=== PATIENT | male | born 1980 ===

== ENCOUNTER → 2017-03-07 | Outpatient (CLI) | payer BC ==
[~2017-03-07] MED LIST: Polytrim Eye Dr10 ML BOTHEYES
== END | disposition home or self-care (01) ==
LOC: PLD 07:19
DX: D22.61 Melanocytic nevi of right upper limb, including shoulder (principal); D22.62 Melanocytic nevi of left upper limb, including shoulder
CPT/HCPCS: 88305

== ENCOUNTER → 2017-08-15 | Outpatient (CLI) | payer BC ==
[2017-08-15 13:40] LABS: BASOPHILS ABSOLUTE AUTO 0.03 K/mm3 (0.00-0.23); BASOPHILS PERCENT AUTO 0 % (0-2); EOSINOPHILS ABSOLUTE AUTO 0.11 K/mm3 (0.00-0.68); EOSINOPHILS PERCENT AUTO 2 % (0-6); Hematocrit 49.2 % (37.0-53.0); Hemoglobin 17.1 g/dL (13.5-17.5); IMMATURE GRAN ABSOLUTE AUTO 0.02 K/mm3 (0.00-0.10); IMMATURE GRAN PERCENT AUTO 0 % (0-1); LYMPHOCYTES ABSOLUTE AUTO 1.84 K/mm3 (0.84-5.20); LYMPHOCYTES PERCENT AUTO 27 % (21-46); MONOCYTES ABSOLUTE AUTO 0.57 K/mm3 (0.16-1.47); MONOCYTES PERCENT AUTO 8 % (4-13); Mean Corpuscular HGB 31.4 pg (26.0-34.0); Mean Corpuscular HGB Conc 34.8 g/dL (31.5-36.5); Mean Corpuscular Volume 90 fL (80-100); NEUTROPHILS ABSOLUTE AUTO 4.35 K/mm3 (1.96-9.15); NEUTROPHILS PERCENT AUTO 63 % (41-73); Platelet Count 284 K/mm3 (150-400); RDW Standard Deviation 42.1 fL (35.1-46.3); Red Blood Cell Count 5.45 M/mm3 (4.30-5.90); White Blood Cell Count 6.92 K/mm3 (4.00-11.30)
[2017-08-15 13:54] LABS: Alanine Aminotransfer (ALT/SGP 24 U/L (12-78); Albumin, Blood 4.1 g/dL (3.4-5.0); Albumin/Globulin Ratio 1.2 (0.8-1.8); Alk Phos 77 U/L (50-136); Anion Gap 9 mmol/L (6-16); Aspartate Aminotrans (AST/SGOT 16 U/L (12-37); Bilirubin, Total 0.6 mg/dL (0.1-1.0); Blood Urea Nitrogen 9 mg/dL (8-24); CHOL/HDL RATIO 5.9; CO2, Blood 26 mmol/L (21-32); Calcium, Blood 9.2 mg/dL (8.5-10.1); Chloride, Blood 109 mmol/L (98-108); Cholesterol 231 mg/dL (50-200); Globulin, Blood 3.3 g/dL (2.2-4.0); Glomerular Filtration Rate >60 (60-); Glucose, Blood 80 mg/dL (70-99); HDL Cholesterol 39 mg/dL (>39); LDL/HDL RATIO 4.2; Low Density Lipoprotein Chol 163 mg/dL (0-110); Potassium, Blood 4.6 mmol/L (3.5-5.5); Sodium, Blood 144 mmol/L (136-145); Total Protein, Blood 7.4 g/dL (6.4-8.2); Triglycerides 143 mg/dL (30-140); Very Low Density Lipoprot Chol 28 mg/dL (6-28)
== END | disposition home or self-care (01) ==
LOC: LAB 10:12 → LAB SHORT 10:12
PROVIDERS: Hospitalist
DX: Z00.00 Encounter for general adult medical examination without abnormal findings (principal); Z12.5 Encounter for screening for malignant neoplasm of prostate; R10.32 Left lower quadrant pain
CPT/HCPCS: 80053; 80061; 85025; G0103

== ENCOUNTER → 2019-05-07 | Outpatient (CLI) | payer BC ==
[2019-05-07 14:31] LABS: Prostate Specific Antigen 0.737 ng/mL (0.000-4.000)
== END | disposition home or self-care (01) ==
LOC: LAB SHORT 13:19 → LAB 13:19
PROVIDERS: Hospitalist
DX: Z12.5 Encounter for screening for malignant neoplasm of prostate (principal)
CPT/HCPCS: G0103

== ENCOUNTER → 2021-07-30 | Outpatient (CLI) | payer BC, OTHER ==
[2021-07-30 08:30] LABS: Source, Urine Clean Catch
[2021-07-30 09:00] LABS: Bacteria Few /hpf; Squamous Epithelial Cells Few /hpf (Few)
[2021-08-03 00:09] LABS: CHLAMYDIA BY NAA Negative (Negative); GONOCOCCUS BY NAA Negative (Negative); TRICH VAG BY NAA Negative (Negative)
== END | disposition home or self-care (01) ==
LOC: LAB 08:27 → LAB SHORT 08:27
PROVIDERS: General Practice
DX: N39.0 Urinary tract infection, site not specified (principal); R82.90 Unspecified abnormal findings in urine
CPT/HCPCS: 81015; 87086

== ENCOUNTER 2021-09-06 07:45 | Day surgery (SDC) | payer BC ==
[~2021-09-06] VITALS: Ht 185.4 cm; Wt 68.3 kg
[~2021-09-06 07:45] MED LIST changes: +ASPI81CH PO; +ATOR40TA PO
[2021-09-06] MEDS ORDERED: Vitamin B-12100 MCG (08:01)
== END 2021-09-06 11:00 | disposition home or self-care (01) ==
LOC: ORSCSDS 07:45
PROVIDERS: Student in an Organized Health Care Education/Training Program
PROC: 0DBK8ZX Excision of Ascending Colon, Via Natural or Artificial Opening Endoscopic, Diagnostic (ICD-10-PCS; principal; 2021-09-06 09:00)
PROC: 0DBH8ZX Excision of Cecum, Via Natural or Artificial Opening Endoscopic, Diagnostic (ICD-10-PCS; principal; 2021-09-06 09:00)
PROC: 0DBL8ZX Excision of Transverse Colon, Via Natural or Artificial Opening Endoscopic, Diagnostic (ICD-10-PCS; principal; 2021-09-06 09:00)
DX: K59.00 Constipation, unspecified (principal); R63.4 Abnormal weight loss; Z83.71 Family history of colonic polyps; D12.3 Benign neoplasm of transverse colon; D12.0 Benign neoplasm of cecum; D12.2 Benign neoplasm of ascending colon; K64.8 Other hemorrhoids; F17.210 Nicotine dependence, cigarettes, uncomplicated; E78.5 Hyperlipidemia, unspecified; Z79.899 Other long term (current) drug therapy; Z79.82 Long term (current) use of aspirin; Z86.16 Personal history of COVID-19
CPT/HCPCS: 88305; J2250; J2704; J7120

== ENCOUNTER → 2022-01-05 | Outpatient (CLI) | payer BC ==
[~2022-01-05] MED LIST changes: +Vitamin B-12100 MCG
[2022-01-05 08:00] LABS: BASOPHILS ABSOLUTE AUTO 0.05 K/mm3 (0.00-0.23); BASOPHILS PERCENT AUTO 0 % (0-2); EOSINOPHILS ABSOLUTE AUTO 0.23 K/mm3 (0.00-0.68); EOSINOPHILS PERCENT AUTO 2 % (0-6); Hematocrit 48.4 % (37.0-53.0); Hemoglobin 16.6 g/dL (13.5-17.5); IMMATURE GRAN ABSOLUTE AUTO 0.05 K/mm3 (0.00-0.10); IMMATURE GRAN PERCENT AUTO 0 % (0-1); LYMPHOCYTES ABSOLUTE AUTO 2.48 K/mm3 (0.84-5.20); LYMPHOCYTES PERCENT AUTO 20 % (21-46); MONOCYTES ABSOLUTE AUTO 1.01 K/mm3 (0.16-1.47); MONOCYTES PERCENT AUTO 8 % (4-13); Mean Corpuscular HGB 31.2 pg (26.0-34.0); Mean Corpuscular HGB Conc 34.3 g/dL (31.5-36.5); Mean Corpuscular Volume 91 fL (80-100); Mean Platelet Volume 10.3 fL (9.1-12.4); NEUTROPHILS ABSOLUTE AUTO 8.79 K/mm3 (1.96-9.15); NEUTROPHILS PERCENT AUTO 70 % (41-73); Platelet Count 320 K/mm3 (150-400); RDW Coefficient Variation 12.3 % (11.7-14.2); RDW Standard Deviation 40.7 fL (35.1-46.3); Red Blood Cell Count 5.32 M/mm3 (4.30-5.90); White Blood Cell Count 12.61 K/mm3 (4.00-11.30)
[2022-01-05 08:09] LABS: Albumin, Blood 4.2 g/dL (3.4-5.0); Albumin/Globulin Ratio 1.2 (0.8-1.8); Bilirubin, Total 0.4 mg/dL (0.1-1.0); Bun/Creatinine Ratio 7.4 (12.0-20.0); Calcium, Blood 8.8 mg/dL (8.5-10.1); Creatinine, Blood 0.95 mg/dL (0.60-1.20); Globulin, Blood 3.6 g/dL (2.2-4.0); Potassium, Blood 4.1 mmol/L (3.5-5.5); Total Protein, Blood 7.8 g/dL (6.4-8.2)
== END | disposition home or self-care (01) ==
LOC: LAB 07:54 → LAB SHORT 07:54
PROVIDERS: Physician Assistant
DX: R07.9 Chest pain, unspecified (principal)
CPT/HCPCS: 80053; 83690; 84484; 85025; 85379

== ENCOUNTER 2022-03-14 07:42 | Day surgery (SDC) | payer BC ==
[~2022-03-14] VITALS: Ht 185.4 cm; Wt 69.8 kg
== END 2022-03-14 10:40 | disposition home or self-care (01) ==
LOC: ORSCSDS 07:42
PROVIDERS: Student in an Organized Health Care Education/Training Program
PROC: 0DBK8ZX Excision of Ascending Colon, Via Natural or Artificial Opening Endoscopic, Diagnostic (ICD-10-PCS; principal; 2022-03-14 09:00)
PROC: 0DBL8ZX Excision of Transverse Colon, Via Natural or Artificial Opening Endoscopic, Diagnostic (ICD-10-PCS; principal; 2022-03-14 09:00)
DX: K59.00 Constipation, unspecified (principal); R63.4 Abnormal weight loss; Z86.010 Personal history of colon polyps; Z83.71 Family history of colonic polyps; D12.2 Benign neoplasm of ascending colon; Z86.16 Personal history of COVID-19; F17.210 Nicotine dependence, cigarettes, uncomplicated; Z79.82 Long term (current) use of aspirin; Z79.899 Other long term (current) drug therapy
CPT/HCPCS: 88305; J2704; J7120

== ENCOUNTER 2023-03-30 12:39 | Day surgery (SDC) | payer OTHER ==
[~2023-03-30] VITALS: Ht 182.9 cm; Wt 64.5 kg
[~2023-03-30 12:39] MED LIST changes: +Lactated Ringer's 1,000 ML IV ONE; +propofoL 50 ML IV ONE
[2023-03-30] MEDS ORDERED: Lactated Ringer's 1,000 ML IV ONE (14:12)
[2023-03-30] MEDS ORDERED: propofoL 50 ML IV ONE (15:31)
[2023-03-30] MEDS ORDERED: ePHEDrine Sulfate 50 MG/ML 1ML Injection ONE (15:31)
[2023-03-30 16:20] VITALS: BP 114/79
== END 2023-03-30 16:20 | disposition home or self-care (01) ==
LOC: ORSCSDS 12:39
PROVIDERS: Internal Medicine Gastroenterology
PROC: 0DBK8ZX Excision of Ascending Colon, Via Natural or Artificial Opening Endoscopic, Diagnostic (ICD-10-PCS; principal; 2023-03-30 14:15)
DX: K59.00 Constipation, unspecified (principal); D12.2 Benign neoplasm of ascending colon; R63.4 Abnormal weight loss; K64.8 Other hemorrhoids; Z86.010 Personal history of colon polyps; Z86.16 Personal history of COVID-19; Z83.719 Family history of colon polyps, unspecified; Z79.82 Long term (current) use of aspirin; Z79.899 Other long term (current) drug therapy; F17.210 Nicotine dependence, cigarettes, uncomplicated
CPT/HCPCS: 88305; J2704; J7120